=== PATIENT | female | born 2005 | race Caucasian/White ===

== ENCOUNTER 2024-07-26 11:34 | Outpatient (OUT) | payer OTHER, SELFPAY ==
[2024-07-26 12:30] LABS: Estimated Average Glucose 88 mg/dL; Glycohemoglobin A1C 4.7 % (4.5-6.2)
[2024-07-26 12:32] LABS: Alanine Aminotransferase 13 U/L (14-59); Albumin Globulin Ratio 1.1; Alkaline Phosphatase 65 U/L (46-116); Anion Gap 10.2; Aspartate Amino Transferase 11 U/L (15-37); BUN Creatinine Ratio 12.3; Bilirubin Total 0.5 mg/dL (0.2-1.0); Calcium 9.3 mg/dL (8.5-10.1); Carbon Dioxide 28.8 mmol/L (21.0-32.0); Chloride 106 mmol/L (98-107); Chol HDL Ratio 2.9; Cholesterol 125 mg/dL (<=200); Estimated GFR (African America >60 (>=60 mL/min/1.73m^2); Estimated GFR (Non-African Ame >60 (>=60 mL/min/1.73m^2); Globulin 3.5 g/dL; Glucose 80 mg/dL (74-106); HDL Cholesterol 43 mg/dL (40-60); LDL Cholesterol Calculated 72.2 mg/dL; Sodium 141 mmol/L (136-145); Total Protein 7.5 g/dL (6.4-8.2); Triglycerides 49 mg/dL (<=150); VLDL CHOLESTEROL 9.8 mg/dL
[2024-07-27 05:07] LABS: HIV Ab/p24 Ag Screen Non Reactive (Non Reactive)
== END 2024-07-26 11:35 | disposition home or self-care (01) ==
PROVIDERS: Visit Provider Internal Medicine
DX: Z13.6 Encounter for screening for cardiovascular disorders (principal); Z11.4 Encounter for screening for human immunodeficiency virus [HIV]; Z13.1 Encounter for screening for diabetes mellitus
CPT/HCPCS: 36415; 80053; 80061; 83036; 87389

== ENCOUNTER 2024-09-10 12:09 | Outpatient (OUT) | payer OTHER, SELFPAY ==
--- NOTE | 2024-09-10 12:17 | XR_ITS ---
The [address] [address] Patient Name: RONALD TADEO MRN: [id number] date: 2005 Sex: F Assigned Patient Location: LAB Current Patient Location: LAB Accession/Order Number: [id number] Exam Date: 09/10/2024 13:02 Report Date: 09/10/2024 13:03 At the request of: RAVINDER ERICKSON MD Procedure: XR lumbar spine min 4V LUMBAR SPINE - 4 views CLINICAL HISTORY: low back pain COMPARISON: None FINDINGS: Vertebral body heights appear maintained. No significant disc height loss. No spondylolisthesis. SI joints appear unremarkable. XR/XR lumbar spine min 4V IMPRESSION: NO ACUTE BONY PROCESS. Impression dictated by: Dru Pelayo Jr., D.OTimur 09/10/2024 1:03 PM Dictation Location: [place] [address] Electronically authenticated by: [id number] Date: 09/10/2024 13:03
[2024-09-10 13:54] LABS: Percent Iron Saturation 15.6 %
== END 2024-09-10 12:10 | disposition home or self-care (01) ==
LOC: LAB 12:11
PROVIDERS: Visit Provider Internal Medicine
DX: E61.1 Iron deficiency (principal); M54.50 Low back pain, unspecified
CPT/HCPCS: 36415; 72110; 82728; 83540; 83550